=== PATIENT | female | born 1935 | race African-American/Black ===

== ENCOUNTER 2017-06-12 23:13 | Inpatient (IN) | payer MEDICAID ==
[~2017-06-12] VITALS: Ht 167.6 cm; Wt 63.0 kg
[2017-06-12] MEDS ORDERED: SODIUM CHLOR 0.9% 1000 ML INJ 1,000 ML IV SCH (23:20)
[2017-06-12 23:22] VITALS: BP 100/48; PULSE 108; RESP 18; TEMP 98.5; O2SAT 99
--- NOTE | 2017-06-12 23:22 | PD ---
HPI Chief Complaint: GI Complaint Time Seen by Provider: 23:21 Travel History International Travel<30 days: No Contact w/Intl Traveler<30days: No Traveled to known affect area: No History of Present Illness HPI Onset of generalized weakness all day, then onset of nausea vomiting and diarrhea since 1800 along with lower abdominal pain. Described as crampy, 6 out of 10 in intensity, stated that she noted some dark coffee ground emesis which prompted patient to come in today for further evaluation Denies any known drug allergies Past medical history significant surgical history significant for AAA repair, thyroid/parathyroid surgery, hypertension, hypercholesterolemia PFSH Social History Tobacco Use: No Allergies-Medications (Allergen,Severity, Reaction): Coded Allergies: No Known Allergies (Unverified , 06/12/17) Reported Meds & Prescriptions Reported Meds & Active Scripts Active Reported Gabapentin 100 Mg Cap 100 Mg PO HS Clopidogrel (Clopidogrel Bisulfate) 75 Mg Tab 75 Mg PO DAILY Atorvastatin (Atorvastatin Calcium) 20 Mg Tab 20 Mg PO HS Lisinopril 20 Mg Tab 20 Mg PO DAILY Review of Systems General / Constitutional: No: Fever Eyes: No: Visual changes HENT: No: Headaches Cardiovascular: No: Chest Pain or Discomfort Respiratory: No: Shortness of Breath Gastrointestinal: Positive: Nausea, Vomiting, Diarrhea Genitourinary: No: Dysuria Musculoskeletal: No: Pain Skin: No Rash Neurologic: No: Weakness Psychiatric: No: Depression Endocrine: No: Polydipsia Hematologic/Lymphatic: No: Easy Bruising Physical Exam Narrative GENERAL: SKIN: Warm and dry. HEAD: Atraumatic. Normocephalic. EYES: Pupils equal and round. No scleral icterus. No injection or drainage. ENT: No nasal bleeding or discharge. Mucous membranes pink and moist. NECK: Trachea midline. No JVD. CARDIOVASCULAR: Regular rate and rhythm. RESPIRATORY: No accessory muscle use. Clear to auscultation. Breath sounds equal bilaterally. GASTROINTESTINAL: Abdomen soft, non-tender, nondistended. MUSCULOSKELETAL: Extremities without clubbing, cyanosis, or edema. No obvious deformities. NEUROLOGICAL: Awake and alert. No obvious cranial nerve deficits. Motor grossly within normal limits. Five out of 5 muscle strength in the arms and legs. Normal speech. PSYCHIATRIC: Appropriate mood and affect; insight and judgment normal. Data Data Last Documented VS Orders Orders Complete Blood Count With Diff (06/12/17 23:20) Comprehensive Metabolic Panel (06/12/17 23:20) Lipase (06/12/17 23:20) Prothrombin Time / Inr (Pt) (06/12/17 23:20) Act Partial Throm Time (Ptt) (06/12/17 23:20) Iv Access Insert/Monitor (06/12/17 23:20) Ecg Monitoring (06/12/17 23:20) Oximetry (06/12/17 23:20) NPO (06/12/17 23:20) Ondansetron Inj (Zofran Inj) (06/12/17 23:30) Sodium Chlor 0.9% 1000 Ml Inj (Ns 1000 M (06/12/17 23:20) Sodium Chloride 0.9% Flush (Ns Flush) (06/12/17 23:30) Type And Screen (06/12/17 23:34) Ct Abd/Pel W/O Iv Contrast (06/12/17 23:47) Admit Order (Ed Use Only) (06/13/17 00:07) Red Blood Cells (Rbc) (06/12/17 23:30) Labs Laboratory Tests Test 06/12/17 23:30 White Blood Count 9.6 TH/MM3 Red Blood Count 2.28 MIL/MM3 Hemoglobin 6.2 GM/DL Hematocrit 19.0 % Mean Corpuscular Volume 83.4 FL Mean Corpuscular Hemoglobin 27.2 PG Mean Corpuscular Hemoglobin Concent 32.6 % Red Cell Distribution Width 14.6 % Platelet Count 129 TH/MM3 Mean Platelet Volume 10.3 FL Neutrophils (%) (Auto) 60.8 % Lymphocytes (%) (Auto) 30.6 % Monocytes (%) (Auto) 6.7 % Eosinophils (%) (Auto) 0.2 % Basophils (%) (Auto) 1.7 % Neutrophils # (Auto) 5.9 TH/MM3 Lymphocytes # (Auto) 2.9 TH/MM3 Monocytes # (Auto) 0.6 TH/MM3 Eosinophils # (Auto) 0.0 TH/MM3 Basophils # (Auto) 0.2 TH/MM3 CBC Comment DIFF FINAL Differential Comment Prothrombin Time 12.1 SEC Prothromb Time International Ratio 1.2 RATIO Activated Partial Thromboplast Time 18.4 SEC Blood Urea Nitrogen 62 MG/DL Creatinine 1.10 MG/DL Random Glucose 196 MG/DL Total Protein 5.4 GM/DL Albumin 2.5 GM/DL Calcium Level 8.8 MG/DL Alkaline Phosphatase 46 U/L Aspartate Amino Transf (AST/SGOT) 18 U/L Alanine Aminotransferase (ALT/SGPT) 17 U/L Total Bilirubin LESS THAN 0.1 MG/DL Sodium Level 137 MEQ/L Potassium Level 4.1 MEQ/L Chloride Level 106 MEQ/L Carbon Dioxide Level 22.7 MEQ/L Anion Gap 8 MEQ/L Estimat Glomerular Filtration Rate 78 ML/MIN Lipase 247 U/L MDM Medical Decision Making Medical Screen Exam Complete: Yes Emergency Medical Condition: Yes Medical Record Reviewed: Yes Interpretation(s) EKG shows sinus tachycardia 106 bpm, nonspecific ST-T wave changes along with some mild ST depressions diffusely. Differential Diagnosis Gastroenteritis versus colitis versus diverticulitis Narrative Course Signed out to incoming physician pending blood work and CT scan results as well as reevaluation and disposition Critical Care Narrative CRITICAL CARE NOTE: With evaluation of the patient, labs, EKG, receipt of radiologic studies, administration of medications, reevaluation the patient and discussion of the patient with the admitting physicians, the total critical care time was [30] minutes. Time to perform other separately billable procedures was not included in the critical care time. Diagnosis Primary Impression: symptomatic anemia Additional Impression: gi bleeding vs gastroenteritis Scripts Pantoprazole (Pantoprazole) 40 Mg Tab 40 MG PO DAILY, #30 TAB Prov: Dori Branham MD 06/17/17 Pal Hurst MD Jun 12, 2017 23:22
[2017-06-12 23:27] VITALS: RESP 18; O2SAT 98
[2017-06-12] MEDS ORDERED: ONDANSETRON HCL 4 MG/2 ML VIAL IVP ONE (23:30)
[2017-06-12] MEDS ORDERED: SODIUM CHLORIDE 0.9% FLUSH 10 ML FLUSH IV FLUSH PRN (23:30)
[2017-06-12] MEDS ORDERED: LISI-515 PO (23:39)
[2017-06-12] MEDS ORDERED: ATOR20TA15 PO (23:39)
[2017-06-12] MEDS ORDERED: GABA100C4 PO (23:39)
[2017-06-12] MEDS ORDERED: CLOP75TA PO (23:39)
[2017-06-12] MEDS ORDERED: AMLO10TA2 PO (23:39)
[2017-06-12 23:40] LABS: AUTOMATED NEUTROPHIL # 5.9 TH/MM3 (1.8-7.7); BASOPHIL # 0.2 TH/MM3 (0-0.2); BASOPHIL % 1.7 % (0.0-2.0); EOSINOPHIL % 0.2 % (0.0-4.0); LYMPH % 30.6 % (9.0-44.0); LYMPHOCYTE # 2.9 TH/MM3 (1.0-4.8); MEAN CELL VOLUME 83.4 FL (80.0-100.0); MEAN CORPUSCULAR HEMOGLOBIN 27.2 PG (27.0-34.0); MEAN CORPUSCULAR HGB CONC 32.6 % (32.0-36.0); MEAN PLATELET VOLUME 10.3 FL (7.0-11.0); MONO % 6.7 % (0.0-8.0); MONOCYTE # 0.6 TH/MM3 (0-0.9); NEUT % 60.8 % (16.0-70.0); PLATELET COUNT 129 TH/MM3 (150-450); RED BLOOD COUNT 2.28 MIL/MM3 (4.50-5.90); RED CELL DISTRIBUTION WIDTH 14.6 % (11.6-17.2); WHITE BLOOD COUNT 9.6 TH/MM3 (4.0-11.0)
[2017-06-12 23:43] LABS: HEMOGLOBIN 6.2 GM/DL (13.0-17.0)
[2017-06-12 23:44] LABS: CHLORIDE 106 MEQ/L (98-107); SODIUM (NA) 137 MEQ/L (136-145)
[2017-06-12 23:48] LABS: ALBUMIN 2.5 GM/DL (3.4-5.0); BICARBONATE 22.7 MEQ/L (21.0-32.0); CALCIUM 8.8 MG/DL (8.5-10.1); GLUCOSE,RANDOM 196 MG/DL (74-106)
[2017-06-12 23:49] LABS: BLOOD UREA NITROGEN 62 MG/DL (7-18)
[2017-06-12 23:51] LABS: ALT (GPT) 17 U/L (12-78); AST (GOT) 18 U/L (15-37)
[2017-06-12 23:52] LABS: GLOMERULAR FILTRATION RATE 78 ML/MIN (>89)
[2017-06-12 23:53] LABS: TOTAL BILIRUBIN ADULT LESS THAN 0.1 MG/DL (0.2-1.0); TOTAL PROTEIN 5.4 GM/DL (6.4-8.2)
[2017-06-12 23:54] LABS: ALKALINE PHOSPHATASE 46 U/L (45-117)
[2017-06-12 23:56] LABS: INTERNATIONAL NORMALIZED RATIO 1.2 RATIO; PROTHROMBIN TIME - PATIENT 12.1 SEC (9.8-11.6)
[2017-06-13] VITALS (36 sets, daily range): BP systolic 84–137; BP diastolic 40–75; PULSE 62–100; RESP 11–40; TEMP 97.6–99.1; O2SAT 85–100
[2017-06-13] MEDS ORDERED: PANTOPRAZOLE INJ 80 MG in SODIUM CHLORIDE 0.9% INJ 35 ML IV ONE (00:16)
--- NOTE | 2017-06-13 00:24 | RADRPT ---
EXAM DATE/TIME: 06/12/2017 23:58 [facility] COMPARISON: No previous studies available for comparison. INDICATIONS : Abdominal pain. Vomiting. Diarrhea. Hypotension. ORAL CONTRAST: No oral contrast ingested. RADIATION DOSE: 8.25 CTDIvol (mGy) MEDICAL HISTORY : Aneurysm, abdominal. SURGICAL HISTORY : Abdominal aortic aneurysm repair. ENCOUNTER: Initial ACUITY: 1 day PAIN SCALE: 6/10 LOCATION: abdominal TECHNIQUE: Volumetric scanning of the abdomen and pelvis was performed. Using automated exposure control and ad justment of the mA and/or kV according to patient size, radiation dose was kept as low as reasonably achievable to obtain optimal diagnostic quality images. DICOM format image data is available electro nically for review and comparison. FINDINGS: LOWER LUNGS: The visualized lower lungs are clear. LIVER: Homogeneous density without lesion. There is no dilation of the biliary tree. No calcified gallston es. SPLEEN: Normal size without lesion. PANCREAS: Within normal limits. KIDNEYS: Normal in size and shape. There is no mass, stone, or hydronephrosis. ADRENAL GLANDS: Within normal limits. VASCULAR: There is no aortic aneurysm. Aortobiiliac stent graft. No aneurysmal sac seen. BOWEL/MESENTERY: Diverticulosis focal without diverticulitis. This is more concentrated in the descending and sigmoid colon.. There is no free intraperitoneal air or fluid. ABDOMINAL WALL: Within normal limits. RETROPERITONEUM: There is no lymphadenopathy. BLADDER: No wall thickening or mass. REPRODUCTIVE: Within normal limits. INGUINAL: There is no lymphadenopathy or hernia. MUSCULOSKELETAL: Lumbar spine predominantly involving the facets. Sclerosis of both SI joints greater on the right. CONCLUSION: 1. Diverticulosis without diverticulitis. 2. Aortobiiliac stent graft. No aneurysm or hemorrhage seen. Álvaro Arceo MD on June 13, 2017 at 0:19 Board Certified Radiologist. This report was verified electronically.
[2017-06-13] MEDS ORDERED: SODIUM CHLORIDE 0.9% FLUSH 10 ML FLUSH IVF PRN (00:30)
--- NOTE | 2017-06-13 00:36 | PD ---
HPI Chief Complaint: GI Complaint Time Seen by Provider: 23:34 Travel History International Travel<30 days: No Contact w/Intl Traveler<30days: No Traveled to known affect area: No History of Present Illness HPI This is an 81-year-old female who was seen briefly by Dr. Hurst prior to the end of his shift. This is a female who has a history of hypertension, previous AAA with repair 2 years ago, presents today with plaints of abdominal pain with associated nausea vomiting diarrhea. Patient has black color to her vomit and diarrhea. There is no reported fevers, chills. She reports pain in her suprapubic abdomen area as well. There is no reported chest pain, chest pressure. The patient did appear to be pale and diaphoretic when she initially entered the room. [facility] Past Medical History Diminished Hearing: No Tetanus Vaccination: Unknown Influenza Vaccination: No ?: Not Menopausal: Yes Past Surgical History Abdominal Aneurysm Repair: Yes Abdominal Surgery: Yes Other Surgery: Yes (thyroidectomy) Social History Alcohol Use: No Tobacco Use: No Substance Use: No Allergies-Medications (Allergen,Severity, Reaction): Coded Allergies: No Known Allergies (Unverified , 06/12/17) Reported Meds & Prescriptions Reported Meds & Active Scripts Active Reported Gabapentin 100 Mg Cap 100 Mg PO HS Clopidogrel (Clopidogrel Bisulfate) 75 Mg Tab 75 Mg PO DAILY Atorvastatin (Atorvastatin Calcium) 20 Mg Tab 20 Mg PO HS Lisinopril 20 Mg Tab 20 Mg PO DAILY Amlodipine (Amlodipine Besylate) 10 Mg Tab 10 Mg PO DAILY Review of Systems Except as stated in HPI: all other systems reviewed are Neg General / Constitutional: No: Fever, Chills Eyes: No: Blurred Vision, Photophobia HENT: No: Headaches, Neck Pain Cardiovascular: Positive: Tachycardia, No: Chest Pain or Discomfort, Palpitations Respiratory: No: Cough, Shortness of Breath Gastrointestinal: Positive: Nausea, Vomiting, Abdominal Pain Genitourinary: Positive: Pelvic Pain, No: Dysuria Musculoskeletal: Positive: Weakness, No: Pain Neurologic: Positive: Weakness (Generalized general), No: Dizziness Physical Exam Narrative GENERAL: Elderly ill weak appearing female in no acute respiratory distress. SKIN: Focused skin assessment warm/dry. HEAD: Atraumatic. Normocephalic. EYES: Pale conjunctiva. No scleral icterus. No injection or drainage. ENT: No nasal bleeding or discharge. Mucous membranes pale and moist.. NECK: Trachea midline. Supple. CARDIOVASCULAR: Tachycardic with a rate of 115. No murmur appreciated. RESPIRATORY: No accessory muscle use. Clear to auscultation. Breath sounds equal bilaterally. GASTROINTESTINAL: Abdomen soft, nondistended. She has subjective pain in her lower abdominal segment. No pulsatile masses appreciated. No rebound. MUSCULOSKELETAL: No obvious deformities. No clubbing. No cyanosis. No edema. NEUROLOGICAL: Awake and alert. No obvious cranial nerve deficits. Motor grossly within normal limits. Normal speech. Data Data Last Documented VS Vital Signs Date Time Temp Pulse Resp B/P (MAP) Pulse Ox O2 Delivery O2 Flow Rate FiO2 06/12/17:27 18 06/12/17:27 98 06/12/17:22 98.5 108 100/48 (65) Orders Orders Complete Blood Count With Diff (06/12/17 23:20) Comprehensive Metabolic Panel (06/12/17 23:20) Lipase (06/12/17 23:20) Prothrombin Time / Inr (Pt) (06/12/17 23:20) Act Partial Throm Time (Ptt) (06/12/17 23:20) Urinalysis - C+S If Indicated (06/12/17 23:20) Iv Access Insert/Monitor (06/12/17 23:20) Ecg Monitoring (06/12/17 23:20) Oximetry (06/12/17 23:20) NPO (06/12/17 23:20) Ondansetron Inj (Zofran Inj) (06/12/17 23:30) Sodium Chlor 0.9% 1000 Ml Inj (Ns 1000 M (06/12/17 23:20) Sodium Chloride 0.9% Flush (Ns Flush) (06/12/17 23:30) Electrocardiogram (06/12/17 23:20) Type And Screen (06/12/17 23:34) Red Blood Cells (Rbc) (06/12/17 23:34) Ct Abd/Pel W/O Iv Contrast (06/12/17 23:47) Admit Order (Ed Use Only) (06/13/17 00:07) Red Blood Cells (Rbc) (06/12/17 23:30) Labs Laboratory Tests Test 06/12/17 23:30 White Blood Count 9.6 TH/MM3 Red Blood Count 2.28 MIL/MM3 Hemoglobin 6.2 GM/DL Hematocrit 19.0 % Mean Corpuscular Volume 83.4 FL Mean Corpuscular Hemoglobin 27.2 PG Mean Corpuscular Hemoglobin Concent 32.6 % Red Cell Distribution Width 14.6 % Platelet Count 129 TH/MM3 Mean Platelet Volume 10.3 FL Neutrophils (%) (Auto) 60.8 % Lymphocytes (%) (Auto) 30.6 % Monocytes (%) (Auto) 6.7 % Eosinophils (%) (Auto) 0.2 % Basophils (%) (Auto) 1.7 % Neutrophils # (Auto) 5.9 TH/MM3 Lymphocytes # (Auto) 2.9 TH/MM3 Monocytes # (Auto) 0.6 TH/MM3 Eosinophils # (Auto) 0.0 TH/MM3 Basophils # (Auto) 0.2 TH/MM3 CBC Comment DIFF FINAL Differential Comment Prothrombin Time 12.1 SEC Prothromb Time International Ratio 1.2 RATIO Activated Partial Thromboplast Time 18.4 SEC Blood Urea Nitrogen 62 MG/DL Creatinine 1.10 MG/DL Random Glucose 196 MG/DL Total Protein 5.4 GM/DL Albumin 2.5 GM/DL Calcium Level 8.8 MG/DL Alkaline Phosphatase 46 U/L Aspartate Amino Transf (AST/SGOT) 18 U/L Alanine Aminotransferase (ALT/SGPT) 17 U/L Total Bilirubin LESS THAN 0.1 MG/DL Sodium Level 137 MEQ/L Potassium Level 4.1 MEQ/L Chloride Level 106 MEQ/L Carbon Dioxide Level 22.7 MEQ/L Anion Gap 8 MEQ/L Estimat Glomerular Filtration Rate 78 ML/MIN Lipase 247 U/L [facility] Medical Decision Making Medical Screen Exam Complete: Yes Emergency Medical Condition: Yes Differential Diagnosis GI bleed versus ruptured AAA versus aorta gastrointestinal fistula versus metabolic derangement versus gastroenteritis Narrative Course 81-year-old female presents with nausea vomiting diarrhea. Patient has heme positive stools. Patient's hemoglobin is 6.2. The patient has a history of an aortic aneurysm repair. CT scan shows no evidence of acute fluid collection or suspicion for ruptured aortic aneurysm. The patient has been emergently transfused with 2 units of packed red blood cells. The case was discussed with Dr. Johanna Barlow, bioinformatics research technician at the [facility]. We will transfer the patient emergently. Concern here is that she may need further blood and rather than transfusing her O- blood we will be able to type specific matter. The patient's blood pressure has increased. Her pulse is also increased. Critical Care Narrative Aggregate critical care time was 60 minutes. Time to perform other separately billable procedures was not included in the critical care time. My time did not include minutes spent treating any other patients simultaneously or on activities that did not directly contribute to the patient's treatment. The services I provided to this patient were to treat and/or prevent clinically significant deterioration that could result in: I provided critical care services requiring my management, as noted below: Chart data review, documentation time, medication orders and management, vital sign assessments/reviewing monitor data, ordering and reviewing lab tests, ordering and interpreting/reviewing x-rays and diagnostic studies, care of the patient and discussion of the patient with the admitting physicians. Diagnosis Primary Impression: GI bleed Additional Impressions: Symptomatic anemia History of AAA (abdominal aortic aneurysm) repair Hypotension Tachycardia Admitting Information Admitting Physician Requests: Admit Alejandro Bajwa MD Jun 13, 2017 00:36
[2017-06-13] MEDS: PANTOPRAZOLE INJ 80 MG in SODIUM CHLORIDE 0.9% INJ 100 ML IV SCH ×5 (00:58→21:25)
--- NOTE | 2017-06-13 04:06 | HHI.HP ---
[facility] Service Critical Care Medicine Primary Care Physician Non-Staff Admission Diagnosis GI Bleed, symptomatic anemia, Diagnosis: (1) Tachycardia Diagnosis: Secondary (2) Hypotension Diagnosis: Secondary (3) GI bleed Diagnosis: Principal (4) Symptomatic anemia Diagnosis: Principal (5) HTN (hypertension) Diagnosis: Secondary (6) HLD (hyperlipidemia) Diagnosis: Secondary Travel History International Travel<30 Days: No Contact w/Intl Traveler <30 Da: No Traveled to Known Affected Are: No History of Present Illness 81-year-old Remy female with past medical history of hypertension, aorto iliac endovascular stent 2 years ago for presented to [facility] [place] with GI bleeding. She states starting the morning of Monday 06/12 she had 4 dark stools since that time, reportedly a maroon stool in the ED. She has some mild right lower quadrant abdominal pain.. She states she has had 2 episodes of coffee ground emesis before coming into the hospital. Reportedly she was tachycardic in the 120s systolic blood pressure in the 90s upon arrival to [place]. She received 1 L normal saline bolus and heart rate decreased to 110. Hemoglobin was 6.2. She has been transfused 2 units of emergency release blood. She is currently normotensive with blood pressure 133/ 63 and heart rate in the 80s. She reports significant improvement. She is on Plavix but no anticoagulation. Platelet count 129. No prior history of GI bleeding. No history of liver disease. She denies NSAID use. States she had a screening colonoscopy 2 years ago in [place] and she reports no abnormalities. Review of Systems Constitutional: DENIES: Fever, Chills Eyes: DENIES: Diplopia Respiratory: DENIES: Cough Cardiovascular: DENIES: Syncope Gastrointestinal: COMPLAINS OF: Abdominal pain, Black stools, Diarrhea, Nausea (none currently. ), Vomiting Genitourinary: DENIES: Urinary frequency Hematologic/lymphatic: DENIES: Bruising Neurologic: COMPLAINS OF: Paresthesias (chronic bilat feet. ) Psychiatric: COMPLAINS OF: Confusion Past Family Social History Allergies: Coded Allergies: No Known Allergies (Unverified , 06/12/17) Past Medical History Hypertension Hyperlipidemia Peripheral arterial disease Peripheral neuropathy Borderline diabetes Arthritis AAA s/p endovascular repair. Past Surgical History Aorta iliac endovascular stent in [place] 2 years ago Parathyroidectomy Reported Medications Plavix 75 mEq by mouth daily Atorvastatin 20 mill grams by mouth daily at bedtime Norvasc 10 mg by mouth daily Lisinopril 20 mg by mouth daily Gabapentin 100 mg by mouth daily at bedtime Family History Mother with hypertension at age 86 She is not aware of her father's medical history Social History She is a lifetime nonsmoker. No alcohol or illicit drug use She is from [place] and has been living in the [facility] for 16 years. Previously lived in [place]. She has a son and daughter who live in [place]. She states that she wishes for her son to be her healthcare surrogate. She is Physical Exam Vital Signs Vital Signs Date Time Temp Pulse Resp B/P (MAP) Pulse Ox O2 Delivery O2 Flow Rate FiO2 06/13/17 03:15 80 06/13/17 03:07 99.1 86 16 133/63 (86) 100 06/13/17 02:31 88 18 100 Nasal Cannula 2.00 06/13/17 02:15 87 18 96/51 (66) 100 06/13/17 01:44 99.1 89 18 91/46 100 06/13/17 01:41 99.1 89 18 91/46 (61) 100 06/13/17 01:10 99.0 87 18 90/47 (61) 100 06/13/17 00:56 98.9 92 18 91/47 100 06/13/17 00:55 92 18 91/47 (62) 100 06/13/17 00:40 99.0 90 18 84/45 (58) 100 06/13/17 00:25 98.9 97 18 98/40 96 06/13/17 00:14 100 18 98/40 (59) 96 Nasal Cannula 2.00 06/12/17 23:27 18 06/12/17 23:27 18 98 06/12/17 23:22 98.5 108 18 100/48 (65) 99 Physical Exam GENERAL: Well-nourished, well-developed pleasant female who is laying in [facility] bed. SKIN: Warm and dry, well perfused. HEAD: Atraumatic. Normocephalic. EYES: Pupils equal and round, 2 mm and reactive bilaterally. No scleral icterus. No injection or drainage. ENT: No nasal bleeding or discharge. Mucous membranes pink and moist. NECK: Trachea midline. No JVD. CARDIOVASCULAR: Regular rate and rhythm, sinus rhythm on the monitor with rate in the 70s. No murmurs rubs or gallops. RESPIRATORY: No accessory muscle use. Clear to auscultation. Breath sounds equal bilaterally. On 2 L nasal cannula satting 100%. GASTROINTESTINAL: Abdomen soft and nondistended. She has some pain in the right lower quadrant but is not tender to palpation. There is no rebound or guarding. Bowel sounds are present. MUSCULOSKELETAL: Extremities without clubbing, cyanosis, or edema. No obvious deformities. NEUROLOGICAL: Awake and alert. No obvious cranial nerve deficits. Motor grossly within normal limits. Normal speech. Laboratory Laboratory Tests Test 06/12/17 23:30 White Blood Count 9.6 Red Blood Count 2.28 Hemoglobin 6.2 Hematocrit 19.0 Mean Corpuscular Volume 83.4 Mean Corpuscular Hemoglobin 27.2 Mean Corpuscular Hemoglobin Concent 32.6 Red Cell Distribution Width 14.6 Platelet Count 129 Mean Platelet Volume 10.3 Neutrophils (%) (Auto) 60.8 Lymphocytes (%) (Auto) 30.6 Monocytes (%) (Auto) 6.7 Eosinophils (%) (Auto) 0.2 Basophils (%) (Auto) 1.7 Neutrophils # (Auto) 5.9 Lymphocytes # (Auto) 2.9 Monocytes # (Auto) 0.6 Eosinophils # (Auto) 0.0 Basophils # (Auto) 0.2 CBC Comment DIFF FINAL Differential Comment Prothrombin Time 12.1 Prothromb Time International Ratio 1.2 Activated Partial Thromboplast Time 18.4 Blood Urea Nitrogen 62 Creatinine 1.10 Random Glucose 196 Total Protein 5.4 Albumin 2.5 Calcium Level 8.8 Alkaline Phosphatase 46 Aspartate Amino Transf (AST/SGOT) 18 Alanine Aminotransferase (ALT/SGPT) 17 Total Bilirubin LESS THAN 0.1 Sodium Level 137 Potassium Level 4.1 Chloride Level 106 Carbon Dioxide Level 22.7 Anion Gap 8 Estimat Glomerular Filtration Rate 78 Lipase 247 Result Diagram: 06/12/17232906/12/172329 Caprini VTE Risk Assessment Caprini VTE Risk Assessment: Mod/High Risk (score >= 2) VTE Pharm Contraindication: Active bleeding Caprini Risk Assessment Model Point Value = 1 Point Value = 2 Point Value = 3 Point Value = 5 Age 41-60 Minor surgery BMI > 25 kg/m2 Swollen legs Varicose veins or History of unexplained or recurrent spontaneous Oral contraceptives or hormone replacement Sepsis (< 1 month) Serious lung disease, including pneumonia (< 1 month) Abnormal pulmonary function Acute myocardial infarction Congestive heart failure (< 1 month) History of inflammatory bowel disease Medical patient at bed rest Age 61-74 Arthroscopic surgery Major open surgery (> 45 min) Laparoscopic surgery (> 45 min) Malignancy Confined to bed (> 72 hours) Immobilizing plaster cast Central venous access Age >= 75 History of VTE Family history of VTE Factor V Leiden Prothrombin [id number] Lupus anticoagulant Anticardiolipin antibodies Elevated serum homocysteine Heparin-induced thrombocytopenia Other congenital or acquired thrombophilia Stroke (< 1 month) Elective arthroplasty Hip, pelvis, or leg fracture Acute spinal cord injury (< 1 month) Prophylaxis Regimen Total Risk Factor Score Risk Level Prophylaxis Regimen 0-1 Low Early ambulation 2 Moderate Order ONE of the following: *Sequential Compression Device (SCD) *Heparin 5000 units SQ BID 3-4 Higher Order ONE of the following medications: *Heparin 5000 units SQ TID *Enoxaparin/Lovenox 40 mg SQ daily (WT < 150 kg, CrCl > 30 mL/min) *Enoxaparin/Lovenox 30 mg SQ daily (WT < 150 kg, CrCl > 10-29 mL/min) *Enoxaparin/Lovenox 30 mg SQ BID (WT < 150 kg, CrCl > 30 mL/min) AND/OR *Sequential Compression Device (SCD) 5 or more Highest Order ONE of the following medications: *Heparin 5000 units SQ TID (Preferred with Epidurals) *Enoxaparin/Lovenox 40 mg SQ daily (WT < 150 kg, CrCl > 30 mL/min) *Enoxaparin/Lovenox 30 mg SQ daily (WT < 150 kg, CrCl > 10-29 mL/min) *Enoxaparin/Lovenox 30 mg SQ BID (WT < 150 kg, CrCl > 30 mL/min) AND *Sequential Compression Device (SCD) Assessment and Plan Problem List: (1) Tachycardia ICD Code: R00.0 - Tachycardia, unspecified Status: Acute (2) Hypotension ICD Code: I95.9 - Hypotension, unspecified Status: Acute (3) GI bleed ICD Code: K92.2 - Gastrointestinal hemorrhage, unspecified Status: Acute (4) Symptomatic anemia ICD Code: D64.9 - Anemia, unspecified Status: Acute (5) HTN (hypertension) ICD Code: I10 - Essential (primary) hypertension (6) HLD (hyperlipidemia) ICD Code: E78.5 - Hyperlipidemia, unspecified (7) History of repair of aneurysm of abdominal aorta using endovascular stent graft Permanent Comment: Last Edited By: Johanna Barlow on Jun 13, 2017 05:19 Assessment and Plan NEURO: Peripheral neuropathy Continue gabapentin 100 mg by mouth daily at bedtime Tylenol/morphine 2-4 mg IV prn pain. RESP: NC wean as tolerated. CV: Hypertension Hyperlipidemia Peripheral arterial disease s/p aorto iliac stent for AAA repair She is on Plavix 75 mg by mouth daily for peripheral arterial disease. Will hold at this time due to GI bleeding. Continue atorvastatin 20 mg by mouth daily at bedtime Home antihypertensives are Norvasc 10 mill grams by mouth daily and lisinopril 20 mg by mouth daily which will hold for now due to GI bleeding and anticipation of procedural sedation and scope which may result in recurrent hypotension. Vasotec prn HTN for now and resume home antihypertensives when stable. Obtained baseline EKG. GI: GI bleeding (melena, coffee ground emesis) Diverticulosis NPO Continue Protonix drip Serial Hgb q6. Gastroenterology consultation CT abdomen and pelvis 06/12 without contrast. Diverticulosis without evidence of diverticulitis. Aortoiliac stent without evidence of hemorrhage Zofran as needed for nausea. She is currently not nauseated or vomiting so will hold off on NGT. FEN/RENAL: Voiding. Creatinine normal. Monitor intake and output. Monitor electrolytes and replace as indicated. ID: Monitor for signs and symptoms of infection. Diverticulosis without evidence of diverticulitis on CT and there is no abdominal tenderness so will hold off on antibiotics HEME: Symptomatic acute blood loss anemia Thrombocytopenia Monitor hemoglobin every 6 hours, transfuse as needed for HGb <7 or symptomatic. Monitor platelets daily, or more closely if requiring multiple PRBC transfusions. Transfuse prn plts <50. Received 2 units emergency release PRBC 06/13. Keep 2 units on hold. Hold Plavix ENDO: Patient reports diet-controlled diabetes Glucose 196. Monitor glucose and initiate low-dose insulin sliding scale as indicated PROPH: SCD for DVT prophylaxis. Avoid pharmacologic DVT prophylaxis due to GI bleeding. Protonix drip as per above. ACCESS: Two 20 gauge Peripheral IV providing adequate access at this time. Full code Patient would like her son to be her healthcare surrogate. Obtaining healthcare surrogate form for her to document this. Level 3 H and P Johanna Barlow MD Jun 13, 2017 04:06
[2017-06-13] MEDS ORDERED: SENNOSIDES 8.6 MG TAB PO PRN (04:15)
[2017-06-13] MEDS ORDERED: LACTULOSE SYRUP 20 GM/30 ML CUP PO PRN (04:15)
[2017-06-13] MEDS ORDERED: SODIUM CHLORIDE 0.9% FLUSH 10 ML FLUSH IV FLUSH PRN (04:15)
[2017-06-13] MEDS ORDERED: ONDANSETRON HCL 4 MG/2 ML VIAL IV PUSH PRN (04:15)
[2017-06-13] MEDS ORDERED: RESP: ALBUTEROL 2.5 MG/3 ML NEB (PRN) INH (04:15)
[2017-06-13] MEDS ORDERED: CHLORHEXIDINE GLUCONATE 2 % 1 PACK (2 CLOTHS) TOP PRN (04:15)
[2017-06-13] MEDS ORDERED: MISCELLANEOUS NURSING INFORMATION XX SCH (04:15)
[2017-06-13] MEDS ORDERED: BISACODYL 10 MG SUPP RECTAL PRN (04:15)
[2017-06-13] MEDS ORDERED: ACETAMINOPHEN 325 MG TAB PO PRN ×2 (04:15→04:30)
[2017-06-13] MEDS ORDERED: MORPHINE SULFATE 4 MG/ML INJ IV PUSH PRN (04:30)
[2017-06-13] MEDS ORDERED: ENALAPRILAT 1.25 MG/ML VIAL IV PUSH PRN (04:45)
[2017-06-13] MEDS ORDERED: LABETALOL HCL 100 MG/20 ML VIAL IV PUSH PRN (04:45)
[2017-06-13] MEDS ORDERED: MAGNESIUM OXIDE 400 MG TAB PO PRN (05:15)
[2017-06-13] MEDS ORDERED: SODIUM PHOSPHATE INJ 30 MMOL in SODIUM CHLOR 0.9% 250 ML INJ 240 ML IV PRN (05:15)
[2017-06-13] MEDS ORDERED: DEXTROSE 50% IN WATER 50 ML VIAL(D50) IV PUSH PRN (05:15)
[2017-06-13] MEDS ORDERED: MAGNESIUM SULFATE INJ 2 GM in SODIUM CHLORIDE 0.9% INJ 96 ML IV PRN (05:15)
[2017-06-13] MEDS ORDERED: POTASSIUM CHLOR 20 MEQ PREMIX 100 ML IV PRN ×2 (05:15)
[2017-06-13] MEDS ORDERED: POTASSIUM CHLORIDE 25 MEQ EFFERVESCENT TAB PO PRN (05:15)
[2017-06-13] MEDS ORDERED: POTASSIUM PHOSPHATE MONOBASIC 500 MG TAB PO/TUBE PRN (05:15)
[2017-06-13] MEDS ORDERED: GLUCAGON 1 MG/ML VIAL OTHER PRN (05:15)
[2017-06-13] MEDS ORDERED: POTASSIUM PHOSPHATE INJ 30 MMOL in SODIUM CHLOR 0.9% 250 ML INJ 250 ML IV PRN (05:15)
[2017-06-13] MEDS ORDERED: POTASSIUM CHLOR 40 MEQ PREMIX 100 ML IV PRN ×2 (05:15)
[2017-06-13] MEDS ORDERED: MAGNESIUM SULFATE INJ 4 GM in SODIUM CHLORIDE 0.9% INJ 92 ML IV PRN (05:15)
[2017-06-13] MEDS ORDERED: POTASSIUM PHOSPHATE MONOBASIC 500 MG TAB PO PRN (05:15)
[2017-06-13 05:24] LABS: BASOPHIL % 0.4 % (0.0-2.0); HEMATOCRIT 27.6 % (39.0-51.0); HEMOGLOBIN 9.8 GM/DL (13.0-17.0); LYMPH % 24.1 % (9.0-44.0); LYMPHOCYTE # 2.2 TH/MM3 (1.0-4.8); MEAN CORPUSCULAR HEMOGLOBIN 28.1 PG (27.0-34.0); MEAN CORPUSCULAR HGB CONC 35.6 % (32.0-36.0); MEAN PLATELET VOLUME 9.5 FL (7.0-11.0); MONO % 8.5 % (0.0-8.0); MONOCYTE # 0.8 TH/MM3 (0-0.9); PLATELET COUNT 89 TH/MM3 (150-450); RED BLOOD COUNT 3.49 MIL/MM3 (4.50-5.90); RED CELL DISTRIBUTION WIDTH 15.2 % (11.6-17.2); WHITE BLOOD COUNT 8.9 TH/MM3 (4.0-11.0)
[2017-06-13] MEDS: SODIUM CHLOR 0.9% 1000 ML INJ 1,000 ML IV SCH ×2 (06:25→14:46)
[2017-06-13] MEDS: INSULIN ASPART SUPPLEMENTAL SCALE SQ SCH ×4 (07:32→20:52)
[2017-06-13] MEDS: SODIUM CHLORIDE 0.9% FLUSH 10 ML FLUSH IV FLUSH SCH ×2 (07:33→20:52)
--- NOTE | 2017-06-13 09:17 | PD.CONS ---
HPI History of Present Illness This is a 81 year old F with PMH significant for HTN, hyperlipidemia, aortoiliac stent 2 years ago, and thyroid/parathyroid surgery. Pt presented to the ER last night with complaints of generalized weakness. States also had black , tarry stools that began yesterday morning, approx four episodes and was reported to have an episode with maroon colored blood in the ER. Pt admits to two episodes of coffee ground emesis as well. States lower abdominal cramping yesterday, that has since resolved. Denies relation to BMs. Has never had EGD. Last colonoscopy was 2 years ago in [place] she is unsure who did the procedure, states exam was normal. Denies history of GIB. Denies acid reflux, heartburn, weight loss. BMs are normally constipated, takes MiraLax as needed with good relief. Of note, on Plavix for history of aortoiliac stent, last dose was yesterday. Denies ETOH, smoking, NSAIDs. (Amanda Aguilera) PFSH Past Medical History HTN Hyperlipidemia PAD Peripheral neuropathy Arthritis AAA S/P endovascular repair Past Surgical History Aorta iliac endovascular sent 2 years ago Parathyroidectomy Colonoscopy (Amanda Aguilera) Coded Allergies: No Known Allergies (Unverified , 06/12/17) Social History Denies ETOH Denies smoking (Amanda Aguilera) Review of Systems Gastrointestinal: COMPLAINS OF: Abdominal pain, Black stools, Bloody stools, Constipation, Nausea, Vomiting, Hematemesis, DENIES: Difficulty Swallowing, Odynophagia, Swelling of Abdomen, Heartburn (Amanda Aguilera) GI Exam Vitals I&O Vital Signs Date Time Temp Pulse Resp B/P (MAP) Pulse Ox O2 Delivery O2 Flow Rate FiO2 06/13/17 08:00 70 06/13/17 07:54 100 Nasal Cannula 2.00 06/13/17 07:00 70 06/13/17 07:00 98.9 71 12 116/56 (76) 100 06/13/17 06:00 70 06/13/17 03:15 80 06/13/17 03:07 99.1 86 16 133/63 (86) 100 06/13/17 02:55 100 Nasal Cannula 2.00 06/13/17 02:31 88 18 100 Nasal Cannula 2.00 06/13/17 02:15 87 18 96/51 (66) 100 06/13/17 01:44 99.1 89 18 91/46 100 06/13/17 01:41 99.1 89 18 91/46 (61) 100 06/13/17 01:10 99.0 87 18 90/47 (61) 100 06/13/17 00:56 98.9 92 18 91/47 100 06/13/17 00:55 92 18 91/47 (62) 100 06/13/17 00:40 99.0 90 18 84/45 (58) 100 06/13/17 00:25 98.9 97 18 98/40 96 06/13/17 00:14 100 18 98/40 (59) 96 Nasal Cannula 2.00 06/12/17 23:27 18 06/12/17 23:27 18 98 06/12/17 23:22 98.5 108 18 100/48 (65) 99 I/O 06/12/17 06/12/17 06/12/17 06/13/17 06/13/17 06/13/17 07:00 15:00 23:00 07:00 15:00 23:00 Intake Total 1935 ml Output Total 500 ml Balance 1435 ml Intake Oral 0 ml IV Total 1035 ml Packed Cells 800 ml Blood Product IV Normal Saline Flush 100 ml Output Urine Total 500 ml # Bowel Movements 0 Laboratory Test 06/12/17 23:30 06/13/17 03:05 06/13/17 05:10 White Blood Count 9.6 TH/MM3 8.9 TH/MM3 Red Blood Count 2.28 MIL/MM3 3.49 MIL/MM3 Hemoglobin 6.2 GM/DL 9.8 GM/DL Hematocrit 19.0 % 27.6 % Mean Corpuscular Volume 83.4 FL 79.0 FL Mean Corpuscular Hemoglobin 27.2 PG 28.1 PG Mean Corpuscular Hemoglobin Concent 32.6 % 35.6 % Red Cell Distribution Width 14.6 % 15.2 % Platelet Count 129 TH/MM3 89 TH/MM3 Mean Platelet Volume 10.3 FL 9.5 FL Neutrophils (%) (Auto) 60.8 % 67.0 % Lymphocytes (%) (Auto) 30.6 % 24.1 % Monocytes (%) (Auto) 6.7 % 8.5 % Eosinophils (%) (Auto) 0.2 % 0.0 % Basophils (%) (Auto) 1.7 % 0.4 % Neutrophils # (Auto) 5.9 TH/MM3 6.0 TH/MM3 Lymphocytes # (Auto) 2.9 TH/MM3 2.2 TH/MM3 Monocytes # (Auto) 0.6 TH/MM3 0.8 TH/MM3 Eosinophils # (Auto) 0.0 TH/MM3 0.0 TH/MM3 Basophils # (Auto) 0.2 TH/MM3 0.0 TH/MM3 CBC Comment DIFF FINAL AUTO DIFF Differential Comment AUTO DIFF CONFIRMED Prothrombin Time 12.1 SEC Prothromb Time International Ratio 1.2 RATIO Activated Partial Thromboplast Time 18.4 SEC Blood Urea Nitrogen 62 MG/DL Creatinine 1.10 MG/DL Random Glucose 196 MG/DL Total Protein 5.4 GM/DL Albumin 2.5 GM/DL Calcium Level 8.8 MG/DL Alkaline Phosphatase 46 U/L Aspartate Amino Transf (AST/SGOT) 18 U/L Alanine Aminotransferase (ALT/SGPT) 17 U/L Total Bilirubin LESS THAN 0.1 MG/DL Sodium Level 137 MEQ/L Potassium Level 4.1 MEQ/L Chloride Level 106 MEQ/L Carbon Dioxide Level 22.7 MEQ/L Anion Gap 8 MEQ/L Estimat Glomerular Filtration Rate 78 ML/MIN Lipase 247 U/L Nasal Screen MRSA (PCR) MRSA NOT DETECTED Platelet Estimate LOW Platelet Morphology Comment NORMAL Red Cell Morphology Comment NORMAL Physical Examination HEENT: Normocephalic; atraumatic CHEST: Even/unlabored CARDIAC: RRR ABDOMEN: Soft, nondistended, nontender; bowel sounds active EXTREMITIES: No clubbing, cyanosis, or edema. SKIN: Normal; no rash; no jaundice. TRIMMING CUTTER: No focal deficits; alert and oriented times three. (Amanda Aguilera) Assessment and Plan Plan Assessment: - GIB- Reports of melena that began yesterday, thinks she has had four episodes, reports of maroon colored stools in ER last night. H/H 6.2/ 19 on admission now S/P 2 U PRBCs 9.8/27.6. Last BM was last night. Pt denies history of GIB. Takes Plavix for aortoiliac stent 2 years ago, last dose was yesterday. Denies ETOH, NSAIDs Last colonoscopy 2 years ago in [place], states normal exam - Coffee ground emesis x 2- last episode yesterday Denies previous EGD - Lower abdominal cramping- worse yesterday, now resolved. Denies association with BMs CT abdomen and pelvis --> Diverticulosis without diverticulitis. Aortoiliac stent graft. No aneurysm or hemorrhage seen. - Aortoiliac stent placed 2 years ago- on Plavix - Impaired renal function - GFR-78 - Impaired glucose- non-fasting BGL 196, not on diabetes medications. Plan: EGD/colonoscopy tomorrow Obtain consent Clear liquids today Mag Citrate prep NPO after MN Protonix gtt Plavix on hold Serial H/H- q 6hr C. diff stool studies Transfuse to keep hgb over 8 Further recommendations based on findings of above Pt has been seen and examined by myself and Dr. Espinoza and this note is written on his behalf (Amanda Aguilera) Physician Comments Patient seen and examined Agree with above Continue with current supportive care Monitor labs Plan for an EGD and colonoscopy tomorrow (Ishan Espinoza MD) Amanda Aguilera Jun 13, 2017 09:17 Ishan Espinoza MD Jun 13, 2017 20:44
[2017-06-13 12:24] LABS: HEMATOCRIT 26.8 % (35.0-46.0); HEMOGLOBIN 9.3 GM/DL (11.6-15.3)
--- NOTE | 2017-06-13 14:40 | EKG ---
Date Performed: 06/12/2017 Time Performed: 23:21:48 PTAGE: 81 years EKG: SINUS TACHYCARDIA NONSPECIFIC ST & T-WAVE ABNORMALITY ABNORMAL RHYTHM ECG NO PREVIOUS TRACING DOCTOR: Trey Mariee Interpretating Date/Time 06/13/2017 14:37:52
--- NOTE | 2017-06-13 15:48 | EKG ---
Date Performed: 06/13/2017 Time Performed: 07:09:08 PTAGE: 81 years EKG: Sinus rhythm NORMAL ECG PREVIOUS TRACING : 06/12/2017 @1121 DOCTOR: Trey Mariee Interpretating Date/Time 06/13/2017 15:44:07
[2017-06-13] MEDS ORDERED: MAGNESIUM CITRATE SOLN 300 ML BTL PO ONE ×2 (16:00→18:00)
[2017-06-13 19:03] LABS: HEMATOCRIT 31.5 % (35.0-46.0); HEMOGLOBIN 10.8 GM/DL (11.6-15.3)
[2017-06-13] MEDS: GABAPENTIN 100 MG CAP PO SCH (20:52)
[2017-06-13] MEDS: ATORVASTATIN 20 MG TAB PO SCH (20:52)
[2017-06-14] VITALS (21 sets, daily range): BP systolic 97–123; BP diastolic 51–65; PULSE 56–92; RESP 10–43; TEMP 97–98.7; O2SAT 100
[2017-06-14] MEDS: SODIUM CHLOR 0.9% 1000 ML INJ 1,000 ML IV SCH ×3 (00:24→23:47)
[2017-06-14 01:34] LABS: HEMATOCRIT 24.2 % (35.0-46.0); HEMOGLOBIN 8.4 GM/DL (11.6-15.3)
[2017-06-14] MEDS: CHLORHEXIDINE GLUCONATE 2 % 1 PACK (2 CLOTHS) TOP SCH (04:00)
[2017-06-14 05:12] LABS: AUTOMATED NEUTROPHIL # 3.8 TH/MM3 (1.8-7.7); BASOPHIL # 0.1 TH/MM3 (0-0.2); BASOPHIL % 0.7 % (0.0-2.0); EOSINOPHIL # 0.2 TH/MM3 (0-0.4); EOSINOPHIL % 2.8 % (0.0-4.0); HEMATOCRIT 26.7 % (35.0-46.0); HEMOGLOBIN 9.1 GM/DL (11.6-15.3); LYMPH % 36.4 % (9.0-44.0); LYMPHOCYTE # 2.8 TH/MM3 (1.0-4.8); MEAN CELL VOLUME 81.9 FL (80.0-100.0); MEAN CORPUSCULAR HEMOGLOBIN 27.8 PG (27.0-34.0); MEAN PLATELET VOLUME 9.7 FL (7.0-11.0); MONO % 10.1 % (0.0-8.0); MONOCYTE # 0.8 TH/MM3 (0-0.9); PLATELET COUNT 92 TH/MM3 (150-450); RED BLOOD COUNT 3.26 MIL/MM3 (4.00-5.30); RED CELL DISTRIBUTION WIDTH 15.5 % (11.6-17.2); WHITE BLOOD COUNT 7.7 TH/MM3 (4.0-11.0)
[2017-06-14] MEDS: PANTOPRAZOLE INJ 80 MG in SODIUM CHLORIDE 0.9% INJ 100 ML IV SCH ×3 (06:19→20:57)
[2017-06-14 06:25] LABS: BICARBONATE 23.4 MEQ/L (21.0-32.0); CALCIUM 8.1 MG/DL (8.5-10.1); CREATININE 0.81 MG/DL (0.50-1.00)
[2017-06-14] MEDS: INSULIN ASPART SUPPLEMENTAL SCALE SQ SCH ×4 (08:00→20:56)
[2017-06-14] MEDS: SODIUM CHLORIDE 0.9% FLUSH 10 ML FLUSH IV FLUSH SCH ×2 (09:00→20:56)
[2017-06-14] MEDS ORDERED: DO NOT ADM ANY ANTICOAGULANT DRUGS PRN (11:35)
--- NOTE | 2017-06-14 11:35 | PD.PROCEDR ---
GI Procedure PROCEDURE PERFORMED EGD with biopsy followed by a colonoscopy INDICATION FOR PROCEDURE GI bleed, abdominal pain PROCEDURE: The procedure, risks and benefits were discussed with Ms. Justice and informed consent was obtained. Anesthesia sedated her with Diprivan. She was placed in the left lateral decubitus position. EGD: The Pentax videoscope was introduced through the oropharynx and advanced to the second portion of the duodenum under direct visualization. Retroflexion was performed in the stomach. FINDINGS: The esophagus this appeared to be unremarkable and within normal limits The stomach there was patchy erythema in the antrum no ulcerations no erosions the rest of the stomach was unremarkable antral biopsies were taken for further evaluation The duodenum there were 2 duodenal ulcers noted in the duodenal bulb with clean base no visible vessel biopsies were taken from the ulcers the rest of the duodenum was unremarkable Colonoscopy: The Pentax videoscope was introduced through the rectum and advanced to cecum where the ileocecal valve and appendiceal orifice were identified. Retroflexion was performed in the rectum. Colonic prep was good FINDINGS: Colonic withdrawal time greater than 6 minutes. As the scope was slowly withdrawn colonic mucosa was carefully inspected patient had a tortuous colon but overall the colonic mucosa was unremarkable with normal limits the patient was noted to have moderately severe to severe diverticulosis of the sigmoid region retroflexion in the rectum did reveal moderate-sized internal hemorrhoids rectal examination otherwise unremarkable ESTIMATED BLOOD LOSS: None SPECIMENS REMOVED: Antral and duodenal biopsies COMPLICATIONS: None IMPRESSION: Gastritis Duodenal ulcers Diverticulosis Internal hemorrhoids PLAN: Await biopsies Avoid NSAIDs and aspirin Recommend PPI, Protonix 40 mg daily Recommend heart healthy diet Follow-up with GI post discharge We will sign off Ishan Espinoza MD Jun 14, 2017 11:35
[2017-06-14] MEDS ORDERED: PHENYLEPH/NS 1000 MCG/10 ML SYR IV ONE (12:00)
[2017-06-14] MEDS ORDERED: LIDOCAINE HCL 1% PF 5 ML SYRINGE OTHER ONE (12:00)
[2017-06-14] MEDS ORDERED: PROPOFOL 200 MG/20 ML AMP IV ONE (12:00)
--- NOTE | 2017-06-14 14:35 | HHI.CCPN ---
Subjective Remarks/Hospital Course 81-year-old [facility] female with past medical history of hypertension, aorto iliac endovascular stent 2 years ago for presented to [facility] [place] with GI bleeding. She states starting the morning of Monday 06/12 she had 4 dark stools since that time, reportedly a maroon stool in the ED. She has some mild right lower quadrant abdominal pain.. She states she has had 2 episodes of coffee ground emesis before coming into the hospital. Reportedly she was tachycardic in the 120s systolic blood pressure in the 90s upon arrival to [place]. She received 1 L normal saline bolus and heart rate decreased to 110. Hemoglobin was 6.2. She has been transfused 2 units of emergency release blood. She is currently normotensive with blood pressure 133/ 63 and heart rate in the 80s. She reports significant improvement. She is on Plavix but no anticoagulation. Platelet count 129. No prior history of GI bleeding. No history of liver disease. She denies NSAID use. States she had a screening colonoscopy 2 years ago in [place] and she reports no abnormalities. SUBJ 06/14: Hemodynamically stable hemoglobin stable, underwent EGD and colonoscopy today findings: Gastritis, Duodenal ulcers, Diverticulosis and Internal hemorrhoids. Biopsies taken, continue Protonix start heart healthy diet. We will transfer to stepdown unit with telemetry Objective Vital Signs Date Time Temp Pulse Resp B/P (MAP) Pulse Ox O2 Delivery O2 Flow Rate FiO2 06/14/17 09:31 78 14 124/58 (80) 100 06/14/17 09:31 Nasal Cannula 2 06/14/17 08:00 98.7 Intake and Output 06/14/17 06/14/17 06/15/17 08:00 16:00 00:00 Intake Total 675 ml 200 ml Balance 675 ml 200 ml Result Diagram: 06/14/17 0453 06/14/17 0526 Objective Remarks GENERAL: Well-nourished, well-developed pleasant female who is laying in bed. SKIN: Warm and dry, well perfused. HEAD: Atraumatic. Normocephalic. EYES: Pupils equal and round, 2 mm and reactive bilaterally. No scleral icterus. No injection or drainage. ENT: No nasal bleeding or discharge. Mucous membranes pink and moist. NECK: Trachea midline. No JVD. CARDIOVASCULAR: Regular rate and rhythm, sinus rhythm on the monitor with rate in the 70s. No murmurs rubs or gallops. RESPIRATORY: No accessory muscle use. Clear to auscultation. GASTROINTESTINAL: Abdomen soft and nondistended. There is no rebound or guarding. Bowel sounds are present. MUSCULOSKELETAL: Extremities without clubbing, cyanosis, or edema. No obvious deformities. NEUROLOGICAL: Awake and alert. No obvious cranial nerve deficits. Motor grossly within normal limits. Normal speech. A/P Problem List: (1) GI bleed ICD Code: K92.2 - Gastrointestinal hemorrhage, unspecified Status: Acute (2) Tachycardia ICD Code: R00.0 - Tachycardia, unspecified Status: Acute (3) Hypotension ICD Code: I95.9 - Hypotension, unspecified Status: Acute (4) Symptomatic anemia ICD Code: D64.9 - Anemia, unspecified Status: Acute (5) HTN (hypertension) ICD Code: I10 - Essential (primary) hypertension (6) HLD (hyperlipidemia) ICD Code: E78.5 - Hyperlipidemia, unspecified Assessment and Plan NEURO: Peripheral neuropathy Continue gabapentin 100 mg by mouth daily at bedtime Tylenol/morphine 2-4 mg IV prn pain. RESP: NC wean as tolerated. CV: Hypertension Hyperlipidemia Peripheral arterial disease s/p aorto iliac stent for AAA repair On Plavix 75 mg by mouth daily for peripheral arterial disease. Hold at this time due to GI bleeding. Continue atorvastatin 20 mg by mouth daily at bedtime Home antihypertensives are Norvasc 10 mill grams by mouth daily and lisinopril 20 mg by mouth daily which will hold for now due to GI bleeding and anticipation of procedural sedation Vasotec prn HTN for now and resume home antihypertensives when stable. Obtained baseline EKG. GI: GI bleeding (melena, coffee ground emesis) Diverticulosis EGD and colonoscopy today findings: Gastritis, Duodenal ulcers, Diverticulosis and Internal hemorrhoids. NPO, start diet per GI recommendation Continue Protonix 40 mg po Serial Hgb q6. stable CT abdomen and pelvis 06/12 without contrast. Diverticulosis without evidence of diverticulitis. Aortoiliac stent without evidence of hemorrhage Zofran as needed for nausea. She is currently not nauseated or vomiting so will hold off on NGT. FEN/RENAL: Voiding. Creatinine normal. Monitor intake and output. Monitor electrolytes and replace as indicated. ID: Monitor for signs and symptoms of infection. Diverticulosis without evidence of diverticulitis on CT and there is no abdominal tenderness so will hold off on antibiotics HEME: Symptomatic acute blood loss anemia Thrombocytopenia Monitor hemoglobin every 6 hours, transfuse as needed for HGb <7 or symptomatic. Monitor platelets daily, or more closely if requiring multiple PRBC transfusions. Transfuse prn plts <50. Received 2 units emergency release PRBC 06/13. Keep 2 units on hold. Hold Plavix ENDO: Patient reports diet-controlled diabetes Glucose 196. Monitor glucose and initiate low-dose insulin sliding scale as indicated PROPH: SCD for DVT prophylaxis. Avoid pharmacologic DVT prophylaxis due to GI bleeding. Protonix drip as per above. ACCESS: Two 20 gauge Peripheral IV providing adequate access at this time. Full code Patient would like her son to be her healthcare surrogate. Obtaining healthcare surrogate form for her to document this. Level 2 Transfer to [facility] with Tele. Ciro Nam am, MD Jun 14, 2017 14:35
[2017-06-14] MEDS: GABAPENTIN 100 MG CAP PO SCH (20:52)
[2017-06-14] MEDS: ATORVASTATIN 20 MG TAB PO SCH (20:52)
[2017-06-15] VITALS (14 sets, daily range): BP systolic 103–157; BP diastolic 53–77; PULSE 67–111; RESP 12–20; TEMP 98.5–99.5; O2SAT 98–100
[2017-06-15 05:38] LABS: AUTOMATED NEUTROPHIL # 4.9 TH/MM3 (1.8-7.7); BASOPHIL % 0.4 % (0.0-2.0); EOSINOPHIL # 0.2 TH/MM3 (0-0.4); EOSINOPHIL % 3.3 % (0.0-4.0); HEMATOCRIT 23.7 % (35.0-46.0); HEMOGLOBIN 8.2 GM/DL (11.6-15.3); LYMPH % 22.2 % (9.0-44.0); LYMPHOCYTE # 1.6 TH/MM3 (1.0-4.8); MEAN CELL VOLUME 81.8 FL (80.0-100.0); MEAN CORPUSCULAR HEMOGLOBIN 28.4 PG (27.0-34.0); MEAN CORPUSCULAR HGB CONC 34.7 % (32.0-36.0); MEAN PLATELET VOLUME 10.4 FL (7.0-11.0); MONO % 7.5 % (0.0-8.0); MONOCYTE # 0.6 TH/MM3 (0-0.9); NEUT % 66.6 % (16.0-70.0); PLATELET COUNT 79 TH/MM3 (150-450); RED CELL DISTRIBUTION WIDTH 15.5 % (11.6-17.2); WHITE BLOOD COUNT 7.4 TH/MM3 (4.0-11.0)
[2017-06-15] MEDS: CHLORHEXIDINE GLUCONATE 2 % 1 PACK (2 CLOTHS) TOP SCH (06:06)
[2017-06-15] MEDS: PANTOPRAZOLE INJ 80 MG in SODIUM CHLORIDE 0.9% INJ 100 ML IV SCH ×2 (06:06→14:23)
[2017-06-15 06:07] LABS: ALBUMIN 2.3 GM/DL (3.4-5.0); AST (GOT) 29 U/L (15-37); BICARBONATE 26.6 MEQ/L (21.0-32.0); BLOOD UREA NITROGEN 7 MG/DL (7-18); CALCIUM 7.9 MG/DL (8.5-10.1); CHLORIDE 116 MEQ/L (98-107); CREATININE 0.74 MG/DL (0.50-1.00); GLOMERULAR FILTRATION RATE 91 ML/MIN (>89); GLUCOSE,RANDOM 90 MG/DL (74-106); SODIUM (NA) 147 MEQ/L (136-145)
[2017-06-15 06:16] LABS: ALKALINE PHOSPHATASE 44 U/L (45-117); ALT (GPT) 23 U/L (10-53); FREE T4 1.09 NG/DL (0.76-1.46); PHOSPHORUS 1.6 MG/DL (2.5-4.9); TOTAL BILIRUBIN ADULT 0.4 MG/DL (0.2-1.0); TOTAL PROTEIN 4.9 GM/DL (6.4-8.2)
[2017-06-15 07:42] LABS: CORRECTED NUCLEATED RBC 1 /100 WBC (0-0); LYMPHOCYTES 16 % (9-44); MONOCYTES 5 % (0-8); NEUTROPHIL # MANUAL DIFF 5.8 TH/MM3 (1.8-7.7); NUCLEATED RED BLOOD CELL 1 (0-0); POLYS (SEG NEUTROPHILS) 78 % (16-70)
[2017-06-15] MEDS: INSULIN ASPART SUPPLEMENTAL SCALE SQ SCH ×4 (08:00→20:18)
[2017-06-15] MEDS: SODIUM CHLORIDE 0.9% FLUSH 10 ML FLUSH IV FLUSH SCH ×2 (09:05→21:00)
[2017-06-15] MEDS: SODIUM CHLOR 0.9% 1000 ML INJ 1,000 ML IV SCH ×2 (10:25→16:00)
[2017-06-15 15:11] LABS: HEMOGLOBIN A1C 5.6 % (4.3-6.0)
--- NOTE | 2017-06-15 19:38 | HHI.PR ---
Subjective Remarks Patient denies cp/sob Denies nausea, vomiting or abdominal pain Objective Vitals Vital Signs Date Time Temp Pulse Resp B/P (MAP) Pulse Ox O2 Delivery O2 Flow Rate FiO2 06/15/17 18:00 91 06/15/17 18:00 100 06/15/17 17:00 106 06/15/17 16:24 99.5 102 20 157/77 (103) 100 06/15/17 16:00 100 06/15/17 16:00 100 Nasal Cannula 2.00 06/15/17 14:00 87 06/15/17 12:00 82 06/15/17 12:00 98.6 82 19 120/58 (78) 100 06/15/17 10:00 77 06/15/17 08:00 70 06/15/17 08:00 98.5 70 19 103/74 (84) 100 06/15/17 06:00 76 06/15/17 04:00 67 06/15/17 04:00 98.6 67 14 107/53 (71) 100 06/15/17 02:00 71 06/15/17 00:00 81 06/15/17 00:00 98.7 81 12 111/56 (74) 100 06/14/17 22:00 72 06/14/17 20:00 98.5 84 16 111/65 (80) 100 06/14/17 20:00 84 06/14/17 19:40 100 Nasal Cannula 2.00 I/O 06/14/17 06/14/17 06/14/17 06/15/17 06/15/17 06/15/17 07:00 15:00 23:00 07:00 15:00 23:00 Intake Total 675 ml 200 ml 1250 ml 1340 ml 1090 ml 240 ml Output Total 1000 ml 650 ml 525 ml Balance 675 ml 200 ml 250 ml 690 ml 565 ml 240 ml Intake Oral 300 ml 240 ml 240 ml IV Total 675 ml 950 ml 1100 ml 1090 ml Other 200 ml Output Urine Total 1000 ml 650 ml 525 ml # Voids 4 3 1 # Bowel Movements 7 0 Result Diagram: 06/15/17 0416 06/15/17 0416 Imaging Last Impressions Abdomen/Pelvis CT 06/12/17 7486 Signed Impressions: Service Date/Time: Monday, June 12, 2017 23:58 - CONCLUSION: 1. Diverticulosis without diverticulitis. 2. Aortobiiliac stent graft. No aneurysm or hemorrhage seen. Álvaro Arceo MD Objective Remarks GENERAL: Well-nourished, well-developed pleasant female who is laying in bed. SKIN: Warm and dry, well perfused. HEAD: Atraumatic. Normocephalic. EYES: Pupils equal and round, 2 mm and reactive bilaterally. No scleral icterus. No injection or drainage. ENT: No nasal bleeding or discharge. Mucous membranes pink and moist. NECK: Trachea midline. No JVD. CARDIOVASCULAR: Regular rate and rhythm, sinus rhythm on the monitor with rate in the 70s. No murmurs rubs or gallops. RESPIRATORY: No accessory muscle use. Clear to auscultation. GASTROINTESTINAL: Abdomen soft and nondistended. There is no rebound or guarding. Bowel sounds are present. MUSCULOSKELETAL: Extremities without clubbing, cyanosis, or edema. No obvious deformities. NEUROLOGICAL: Awake and alert. No obvious cranial nerve deficits. Motor grossly within normal limits. Normal speech. Medications and IVs Current Medications Medications (Trade) Dose Ordered Sig/Sangeetha Route Start Time Stop Time Status Last Admin Sodium Chloride 1,000 ml @ 100 mls/hr Q10H IV 06/13/17 04:00 06/15/17 10:25 (NS Flush) 2 ml UNSCH PRN IV FLUSH 06/13/17 04:15 (NS Flush) 2 ml BID IV FLUSH 06/13/17 09:00 06/15/17 09:05 (Tylenol) 650 mg Q6H PRN PO 06/13/17 04:15 (Zofran Inj) 4 mg Q6H PRN IV PUSH 06/13/17 04:15 (Albuterol Neb) 2.5 mg Q2HR NEB PRN INH 06/13/17 04:15 Miscellaneous Information 1 Q361D XX 06/13/17 04:15 (Chlorhexidine 2% Cloth) 3 pack Taper DAILY@04 TOP 06/14/17 04:00 06/10/18 03:59 06/15/17 06:06 (Chlorhexidine 2% Cloth) 3 pack UNSCH PRN TOP 06/13/17 04:15 (Senokot) 17.2 mg Q12H PRN PO 06/13/17 04:15 (Dulcolax Supp) 10 mg DAILY PRN RECTAL 06/13/17 04:15 (Lactulose Liq) 30 ml DAILY PRN PO 06/13/17 04:15 Pantoprazole Sodium 80 mg/ Sodium Chloride 100 ml @ 10 mls/hr Q10H IV 06/13/17 05:09 06/16/17 01:16 (Lipitor) 20 mg HS PO 06/13/17 21:00 06/15/17 21:02 (Neurontin) 100 mg HS PO 06/13/17 21:00 06/15/17 21:02 (Morphine Inj) 2 mg Q3H PRN IV PUSH 06/13/17 04:30 06/16/17 05:06 (Morphine Inj) 4 mg Q3H PRN IV PUSH 06/13/17 04:30 (Tylenol) 650 mg Q4H PRN PO 06/13/17 04:30 (Vasotec Inj) 1.25 mg Q6H PRN IV PUSH 06/13/17 04:45 (D50w (Vial) Inj) 50 ml UNSCH PRN IV PUSH 06/13/17 05:15 (Glucagon Inj) 1 mg UNSCH PRN OTHER 06/13/17 05:15 (NovoLOG SUPPLEMENTAL SCALE) 1 ACHS SLIDING SCALE SQ 06/13/17 08:00 06/14/17 17:00 Potassium Chloride 100 ml @ 50 mls/hr Q2H PRN IV 06/13/17 05:15 Potassium Chloride 100 ml @ 50 mls/hr Q2H PRN IV 06/13/17 05:15 (K-Lyte Cl Eff) 50 meq UNSCH PRN PO 06/13/17 05:15 Potassium Chloride 100 ml @ 25 mls/hr UNSCH PRN IV 06/13/17 05:15 Potassium Chloride 100 ml @ 50 mls/hr Q2H PRN IV 06/13/17 05:15 Magnesium Sulfate 4 gm/Sodium Chloride 100 ml @ 50 mls/hr UNSCH PRN IV 06/13/17 05:15 (Mag-Ox) 800 mg UNSCH PRN PO 06/13/17 05:15 Magnesium Sulfate 2 gm/Sodium Chloride 100 ml @ 50 mls/hr UNSCH PRN IV 06/13/17 05:15 (K-Phos) 2,000 mg Q4H PRN PO 06/13/17 05:15 Sodium Phosphate 30 mmol/Sodium Chloride 250 ml @ 42 mls/hr UNSCH PRN IV 06/13/17 05:15 (K-Phos) 2,000 mg UNSCH PRN PO/TUBE 06/13/17 05:15 Potassium Phosphate 30 mmol/ Sodium Chloride 260 ml @ 42 mls/hr UNSCH PRN IV 06/13/17 05:15 A/P Problem List: (1) Tachycardia ICD Code: R00.0 - Tachycardia, unspecified Status: Acute (2) Hypotension ICD Code: I95.9 - Hypotension, unspecified Status: Acute (3) GI bleed ICD Code: K92.2 - Gastrointestinal hemorrhage, unspecified Status: Acute (4) Symptomatic anemia ICD Code: D64.9 - Anemia, unspecified Status: Acute (5) HTN (hypertension) ICD Code: I10 - Essential (primary) hypertension (6) HLD (hyperlipidemia) ICD Code: E78.5 - Hyperlipidemia, unspecified Assessment and Plan Peripheral neuropathy Continue gabapentin 100 mg by mouth daily at bedtime Tylenol/morphine 2-4 mg IV prn pain.. Hypertension Hyperlipidemia Peripheral arterial disease s/p aorto iliac stent for AAA repair On Plavix 75 mg by mouth daily for peripheral arterial disease. Hold at this time due to GI bleeding. Continue atorvastatin 20 mg by mouth daily at bedtime Home antihypertensives are Norvasc 10 mill grams by mouth daily and lisinopril 20 mg by mouth daily which will hold for now due to GI bleeding and anticipation of procedural sedation Vasotec prn HTN for now and resume home antihypertensives when stable. Obtained baseline EKG. GI bleeding (melena, coffee ground emesis) Diverticulosis EGD and colonoscopy findings: Gastritis, Duodenal ulcers, Diverticulosis and Internal hemorrhoids. Diet as per GI recommendations. Continue Protonix 40 mg po Serial Hgb q6. stable CT abdomen and pelvis 06/12 without contrast. Diverticulosis without evidence of diverticulitis. Aortoiliac stent without evidence of hemorrhage Zofran as needed for nausea. She is currently not nauseated or vomiting so will hold off on NGT. Symptomatic acute blood loss anemia Thrombocytopenia Monitor hemoglobin every 6 hours, transfuse as needed for HGb <7 or symptomatic. Monitor platelets daily, or more closely if requiring multiple PRBC transfusions. Transfuse prn plts <50. Received 2 units emergency release PRBC 06/13. Keep 2 units on hold. Plavix Held due to GI bleed will resume in am. Diabetes Diet controlled as per patient Monitor glucose and initiate low-dose insulin sliding scale as indicated PROPH: SCD for DVT prophylaxis. Avoid pharmacologic DVT prophylaxis due to GI bleeding. Protonix drip as per above. ACCESS: Two 20 gauge Peripheral IV providing adequate access at this time. Full code Discharge Planning Dc pending GI clearance, patient will need rehab placement. Marcos Soler MD Jun 15, 2017 19:38
[2017-06-15] MEDS: ATORVASTATIN 20 MG TAB PO SCH (21:02)
[2017-06-15] MEDS: GABAPENTIN 100 MG CAP PO SCH (21:02)
[2017-06-15] MEDS: MORPHINE SULFATE 2 MG/ML SYRINGE IV PUSH PRN (23:00)
[2017-06-16] VITALS (20 sets, daily range): BP systolic 118–155; BP diastolic 57–81; PULSE 77–117; RESP 16–20; TEMP 98.7–100.1; O2SAT 94–100
[2017-06-16] MEDS: PANTOPRAZOLE INJ 80 MG in SODIUM CHLORIDE 0.9% INJ 100 ML IV SCH (01:16)
[2017-06-16] MEDS: SODIUM CHLOR 0.9% 1000 ML INJ 1,000 ML IV SCH ×3 (02:00→19:21)
[2017-06-16] MEDS: CHLORHEXIDINE GLUCONATE 2 % 1 PACK (2 CLOTHS) TOP SCH ×2 (03:05→19:21)
[2017-06-16] MEDS: MORPHINE SULFATE 2 MG/ML SYRINGE IV PUSH PRN (05:06)
[2017-06-16] MEDS: INSULIN ASPART SUPPLEMENTAL SCALE SQ SCH ×4 (08:00→21:00)
[2017-06-16] MEDS: SODIUM CHLORIDE 0.9% FLUSH 10 ML FLUSH IV FLUSH SCH ×2 (08:53→20:30)
[2017-06-16] MEDS: PANTOPRAZOLE SOD 40 MG DELAYED RELEASE TAB PO SCH (08:53)
[2017-06-16] MEDS: CLOPIDOGREL 75 MG TAB PO SCH (08:53)
[2017-06-16] MEDS: LISINOPRIL 20 MG TAB PO SCH (08:53)
[2017-06-16] MEDS ORDERED: CETIRIZINE HCL 10 MG TAB PO SCH (10:00)
[2017-06-16 12:07] LABS: AUTOMATED NEUTROPHIL # 6.7 TH/MM3 (1.8-7.7); BASOPHIL # 0.1 TH/MM3 (0-0.2); BASOPHIL % 0.8 % (0.0-2.0); EOSINOPHIL # 0.2 TH/MM3 (0-0.4); EOSINOPHIL % 2.6 % (0.0-4.0); HEMATOCRIT 33.7 % (35.0-46.0); HEMOGLOBIN 11.5 GM/DL (11.6-15.3); LYMPHOCYTE # 1.8 TH/MM3 (1.0-4.8); MEAN CELL VOLUME 81.6 FL (80.0-100.0); MEAN CORPUSCULAR HEMOGLOBIN 27.9 PG (27.0-34.0); MEAN CORPUSCULAR HGB CONC 34.2 % (32.0-36.0); MEAN PLATELET VOLUME 11.1 FL (7.0-11.0); MONO % 6.9 % (0.0-8.0); MONOCYTE # 0.6 TH/MM3 (0-0.9); NEUT % 70.7 % (16.0-70.0); PLATELET COUNT 98 TH/MM3 (150-450); RED BLOOD COUNT 4.14 MIL/MM3 (4.00-5.30); RED CELL DISTRIBUTION WIDTH 15.2 % (11.6-17.2); WHITE BLOOD COUNT 9.4 TH/MM3 (4.0-11.0)
[2017-06-16 13:02] LABS: KERATOCYTES OCC (NORMAL); TARGET CELLS 1+ (NORMAL)
--- NOTE | 2017-06-16 14:01 | HHI.PR ---
Subjective Remarks Patient reports she is feeling better. Still with some weakness. Objective Vitals Vital Signs Date Time Temp Pulse Resp B/P (MAP) Pulse Ox O2 Delivery O2 Flow Rate FiO2 06/16/17 12:00 98.9 96 18 132/63 (86) 100 06/16/17 08:00 99.4 88 16 130/68 (88) 99 06/16/17 08:00 99 Nasal Cannula 2.00 06/16/17 04:03 77 06/16/17 04:00 99.3 86 20 118/57 (77) 100 06/16/17 00:04 82 06/16/17 00:00 99.6 104 20 155/81 (105) 99 06/15/17 23:05 18 06/15/17 20:09 111 06/15/17 20:00 98.7 104 20 142/65 (90) 98 06/15/17 18:00 91 06/15/17 18:00 100 06/15/17 17:00 106 06/15/17 16:24 99.5 102 20 157/77 (103) 100 06/15/17 16:00 100 06/15/17 16:00 100 Nasal Cannula 2.00 I/O 06/15/17 06/15/17 06/15/17 06/16/17 06/16/17 06/16/17 07:00 15:00 23:00 07:00 15:00 23:00 Intake Total 1340 ml 1090 ml 240 ml 353 ml Output Total 650 ml 525 ml Balance 690 ml 565 ml 240 ml 353 ml Intake Oral 240 ml 240 ml IV Total 1100 ml 1090 ml 353 ml Output Urine Total 650 ml 525 ml # Voids 3 1 # Bowel Movements 0 5 Result Diagram: 06/16/17 1019 06/15/17 0416 Objective Remarks GENERAL: Elderly and frail, in no apparent distress. CARDIOVASCULAR: Normal rate and regular rhythm without murmurs, gallops, or rubs. RESPIRATORY: Good respiratory efforts. Breath sounds equal and clear to auscultation bilaterally. GASTROINTESTINAL: Abdomen soft, non-tender, non-distended. Normal active bowel sounds MUSCULOSKELETAL: Extremities without cyanosis, or edema. NEURO: Alert & Oriented x4 to person, place, time, situation. Moves all ext x4. Generalized weakness PSYCH: Appropriate mood and affect. A/P Problem List: (1) Tachycardia ICD Code: R00.0 - Tachycardia, unspecified Status: Acute (2) Hypotension ICD Code: I95.9 - Hypotension, unspecified Status: Acute (3) GI bleed ICD Code: K92.2 - Gastrointestinal hemorrhage, unspecified Status: Acute (4) Symptomatic anemia ICD Code: D64.9 - Anemia, unspecified Status: Acute (5) HTN (hypertension) ICD Code: I10 - Essential (primary) hypertension (6) HLD (hyperlipidemia) ICD Code: E78.5 - Hyperlipidemia, unspecified Assessment and Plan Hypertension Hyperlipidemia Peripheral arterial disease s/p aorto iliac stent for AAA repair On Plavix 75 mg by mouth daily for peripheral arterial disease. Resume Plavix. Continue atorvastatin 20 mg by mouth daily at bedtime Home antihypertensives are Norvasc 10 mill grams by mouth daily and lisinopril 20 mg by mouth daily Vasotec prn HTN for now and resume home antihypertensives when stable. GI bleeding (melena, coffee ground emesis) Diverticulosis EGD and colonoscopy findings: Gastritis, Duodenal ulcers, Diverticulosis and Internal hemorrhoids. Diet as per GI recommendations. Continue Protonix 40 mg po Serial Hgb q6. stable CT abdomen and pelvis 06/12 without contrast. Diverticulosis without evidence of diverticulitis. Aortoiliac stent without evidence of hemorrhage Zofran as needed for nausea. Symptomatic acute blood loss anemia Thrombocytopenia Monitor hemoglobin every 6 hours, transfuse as needed for HGb <7 or symptomatic. Monitor platelets daily, or more closely if requiring multiple PRBC transfusions. Transfuse prn plts <50. Received 2 units emergency release PRBC 06/13. Keep 2 units on hold. Debility: - Physical therapy for daily PT ordered. Diabetes Diet controlled as per patient Monitor glucose and initiate low-dose insulin sliding scale as indicated PROPH: SCD for DVT prophylaxis. Avoid pharmacologic DVT prophylaxis due to GI bleeding. Protonix. Discharge Planning No benefit for SNF. Continue physical therapy. Home with home health soon. Dori Branham MD Jun 16, 2017 14:01
[2017-06-16] MEDS: GABAPENTIN 100 MG CAP PO SCH (20:29)
[2017-06-16] MEDS: ATORVASTATIN 20 MG TAB PO SCH (20:29)
[2017-06-17] VITALS (16 sets, daily range): BP systolic 99–121; BP diastolic 43–62; PULSE 76–92; RESP 16; TEMP 98–99.4; O2SAT 97–100
[2017-06-17] MEDS: INSULIN ASPART SUPPLEMENTAL SCALE SQ SCH ×2 (08:00→12:00)
[2017-06-17] MEDS: LISINOPRIL 20 MG TAB PO SCH (08:26)
[2017-06-17] MEDS: PANTOPRAZOLE SOD 40 MG DELAYED RELEASE TAB PO SCH (08:26)
[2017-06-17] MEDS: CLOPIDOGREL 75 MG TAB PO SCH (08:26)
[2017-06-17] MEDS: SODIUM CHLORIDE 0.9% FLUSH 10 ML FLUSH IV FLUSH SCH (09:00)
[2017-06-17] MEDS ORDERED: PANT40TA3 PO (11:01)
--- NOTE | 2017-06-17 11:03 | HHI.DCPOC ---
Discharge Care Plan Diagnosis: (1) Symptomatic anemia (2) GI bleed (3) HTN (hypertension) (4) HLD (hyperlipidemia) (5) Hypotension (6) Tachycardia Goals to Promote Your Health * To prevent worsening of your condition and complications * To maintain your health at the optimal level Directions to Meet Your Goals Take your medications as prescribed Follow your dietary instruction Follow activity as directed Keep your appointments as scheduled Take your immunizations and boosters as scheduled If your symptoms worsen call your PCP, if no PCP go to Urgent Care Center or Emergency Room Smoking is Dangerous to Your Health. Avoid second hand smoke Call the 24-hour hour crisis hotline for domestic abuse at Dori Branham MD Jun 17, 2017 11:03
--- NOTE | 2017-06-17 11:10 | HHI.DS ---
Discharge Summary Admission Date Jun 13, 2017 at 00:09 Discharge Date: Jun 17, 2017 Admitting Diagnosis GI Bleed, symptomatic anemia, (1) Tachycardia ICD Code: R00.0 - Tachycardia, unspecified Diagnosis: Secondary Status: Acute (2) Hypotension ICD Code: I95.9 - Hypotension, unspecified Diagnosis: Secondary Status: Acute (3) GI bleed ICD Code: K92.2 - Gastrointestinal hemorrhage, unspecified Diagnosis: Principal Status: Acute (4) Symptomatic anemia ICD Code: D64.9 - Anemia, unspecified Diagnosis: Principal Status: Acute (5) HTN (hypertension) ICD Code: I10 - Essential (primary) hypertension Diagnosis: Secondary (6) HLD (hyperlipidemia) ICD Code: E78.5 - Hyperlipidemia, unspecified Diagnosis: Secondary Procedures EGD and colonoscopy which revealed: Gastritis Duodenal ulcers Diverticulosis Internal hemorrhoids Brief History - From Admission HPI from the admitting physician 81-year-old [facility] female with past medical history of hypertension, aorto iliac endovascular stent 2 years ago for presented to [facility] [place] with GI bleeding. She states starting the morning of Monday 06/12 she had 4 dark stools since that time, reportedly a maroon stool in the ED. She has some mild right lower quadrant abdominal pain.. She states she has had 2 episodes of coffee ground emesis before coming into the hospital. Reportedly she was tachycardic in the 120s systolic blood pressure in the 90s upon arrival to [place]. She received 1 L normal saline bolus and heart rate decreased to 110. Hemoglobin was 6.2. She has been transfused 2 units of emergency release blood. She is currently normotensive with blood pressure 133/ 63 and heart rate in the 80s. She reports significant improvement. She is on Plavix but no anticoagulation. Platelet count 129. No prior history of GI bleeding. No history of liver disease. She denies NSAID use. States she had a screening colonoscopy 2 years ago in [place] and she reports no abnormalities. CBC/BMP: 06/16/17 1019 06/15/17 0416 Significant Findings Laboratory Tests Test 06/15/17 04:16 06/16/17 10:19 Red Blood Count 2.90 MIL/MM3 (4.00-5.30) Hemoglobin 8.2 GM/DL (11.6-15.3) 11.5 GM/DL (11.6-15.3) Hematocrit 23.7 % (35.0-46.0) 33.7 % (35.0-46.0) Platelet Count 79 TH/MM3 (150-450) 98 TH/MM3 (150-450) Neutrophils % (Manual) 78 % (16-70) Nucleated Red Blood Cells 1 /100 WBC (0-0) Platelet Estimate LOW (NORMAL) LOW (NORMAL) Total Protein 4.9 GM/DL (6.4-8.2) Albumin 2.3 GM/DL (3.4-5.0) Calcium Level 7.9 MG/DL (8.5-10.1) Phosphorus Level 1.6 MG/DL (2.5-4.9) Alkaline Phosphatase 44 U/L (45-117) Sodium Level 147 MEQ/L (136-145) Chloride Level 116 MEQ/L (98-107) Anion Gap 4 MEQ/L (5-15) Mean Platelet Volume 11.1 FL (7.0-11.0) Neutrophils (%) (Auto) 70.7 % (16.0-70.0) Platelet Morphology Comment ENLARGED (NORMAL) Target Cells 1+ (NORMAL) Keratocytes OCC (NORMAL) Imaging Last Impressions Abdomen/Pelvis CT 06/12/17 5110 Signed Impressions: Service Date/Time: Monday, June 12, 2017 23:58 - CONCLUSION: 1. Diverticulosis without diverticulitis. 2. Aortobiiliac stent graft. No aneurysm or hemorrhage seen. Álvaro Arceo MD PE at Discharge GENERAL: Elderly and frail, in no apparent distress. CARDIOVASCULAR: Normal rate and regular rhythm without murmurs, gallops, or rubs. RESPIRATORY: Good respiratory efforts. Breath sounds equal and clear to auscultation bilaterally. GASTROINTESTINAL: Abdomen soft, non-tender, non-distended. Normal active bowel sounds MUSCULOSKELETAL: Extremities without cyanosis, or edema. NEURO: Alert & Oriented x4 to person, place, time, situation. Moves all ext x4. Generalized weakness PSYCH: Appropriate mood and affect. Pt update on day of discharge Patient reports she is feeling much better. She is ambulating independently. No shortness of breath or chest pain. Feels good to go home. Hospital Course 81-year-old female presented with GI bleeding and symptomatic anemia evaluation and treatment course detailed below: GI bleeding (melena, coffee ground emesis) Diverticulosis EGD and colonoscopy findings: Gastritis, Duodenal ulcers, Diverticulosis and Internal hemorrhoids. Continue Protonix 40 mg po Serial Hgb stable CT abdomen and pelvis 06/12 without contrast. Diverticulosis without evidence of diverticulitis. Aortoiliac stent without evidence of hemorrhage Follow-up outpatient with GI Hypertension Hyperlipidemia Peripheral arterial disease s/p aorto iliac stent for AAA repair On Plavix 75 mg by mouth daily for peripheral arterial disease. Resume Plavix. Continue atorvastatin 20 mg by mouth daily at bedtime Home antihypertensives were adjusted. She is discharged on lisinopril. Norvasc discontinued. Follow-up outpatient with PCP Symptomatic acute blood loss anemia Thrombocytopenia Status post PRBC transfusion. H&H stabilized. Debility: -Patient progressed well with physical therapy Diabetes Diet controlled Pt Condition on Discharge: Good Discharge Disposition: Discharge Home Discharge Time: <= 30 minutes Discharge Instructions DIET: Follow Instructions for: Heart Healthy Diet Activities you can perform: Regular-No Restrictions Follow up Referrals: Gastroenterology - 2 Weeks with Ishan Espinoza MD PCP Follow-up - 1 Week New Medications: Pantoprazole (Pantoprazole) 40 Mg Tab 40 MG PO DAILY, #30 TAB Continued Medications: Atorvastatin (Atorvastatin) 20 Mg Tab 20 MG PO HS for Cholesterol Management, #30 TAB 0 Refills Clopidogrel (Clopidogrel) 75 Mg Tab 75 MG PO DAILY for Blood Clot Prevention, #30 TAB 0 Refills Gabapentin (Gabapentin) 100 Mg Cap 100 MG PO HS, #30 CAP 0 Refills Lisinopril (Lisinopril) 20 Mg Tab 20 MG PO DAILY, #30 TAB 0 Refills Discontinued Medications: Amlodipine (Amlodipine) 10 Mg Tab 10 MG PO DAILY for Blood Pressure Management, #30 TAB 0 Refills Dori Branham MD Jun 17, 2017 11:10
== END 2017-06-17 16:19 | disposition home or self-care (01) | DRG 811 ==
LOC: PHED 23:13 → PHEDA 06-13 00:09 → EDSEX 06-13 00:09 → HIME 06-13 02:55 → HCIS 06-15 15:58
PROVIDERS: ADMIT Family Medicine; ATTEND Family Medicine
PROC: 30233N1 Transfusion of Nonautologous Red Blood Cells into Peripheral Vein, Percutaneous Approach (ICD-10-PCS; 2017-06-13)
PROC: 0DJD8ZZ Inspection of Lower Intestinal Tract, Via Natural or Artificial Opening Endoscopic (ICD-10-PCS; 2017-06-14)
PROC: 0DB98ZX Excision of Duodenum, Via Natural or Artificial Opening Endoscopic, Diagnostic (ICD-10-PCS; principal; 2017-06-14 10:53)
PROC: 0DB78ZX Excision of Stomach, Pylorus, Via Natural or Artificial Opening Endoscopic, Diagnostic (ICD-10-PCS; 2017-06-14 10:53)
DX: D62 Acute posthemorrhagic anemia (principal); K57.31 Diverticulosis of large intestine without perforation or abscess with bleeding; E11.42 Type 2 diabetes mellitus with diabetic polyneuropathy; E11.51 Type 2 diabetes mellitus with diabetic peripheral angiopathy without gangrene; D69.6 Thrombocytopenia, unspecified; K26.4 Chronic or unspecified duodenal ulcer with hemorrhage; I95.9 Hypotension, unspecified; E78.5 Hyperlipidemia, unspecified; R00.0 Tachycardia, unspecified; M19.90 Unspecified osteoarthritis, unspecified site; K59.00 Constipation, unspecified; K64.8 Other hemorrhoids; K29.50 Unspecified chronic gastritis without bleeding; I10 Essential (primary) hypertension
CPT/HCPCS: 36430; 74176; 80048; 80053; 82948; 83036; 83690; 83735; 84100; 84439; 84443; 85007; 85014; 85018; 85025; 85027; 85610; 85730; 86850; 86900; 86901; 86920; 87641; 88305; 88312; 93005; 96374; C9113; J1815; J2270; J2370; J2405; J7030; P9016